=== PATIENT | female | born 1950 | race Caucasian/White ===

== ENCOUNTER 2019-09-17 20:55 | Emergency (ER) | payer MEDICARE ==
[~2019-09-17] VITALS: Ht 160 cm; Wt 90.7 kg
[~2019-09-17 20:55] MED LIST: ALBU90OI INH; ALEN70; CHOL10002; CITA20 PO; FOLI1 PO; GARLIC; GLUCOSAMIN-CHO1 EACH PO; Garlic1000 MG PO; HYDACE5 PO; HYDROCODONE/A; Hair, Skin & N1 EACH PO; LEVFLO500 PO; LEVSOD50 PO; MECL12.5 PO; MELO7.5; MELO7.5 PO; METTREX2.5 PO; MSM1000; Mucinex600 MG PO; Norco 5-325 Ta1 EACH PO; OLME20; OMEP20ER PO; VICODEN; VITAMIN; Vitamin B Comple1 EA PO; ZESTORETIC 20-1 EACH PO; [UNRECOGNIZED DRUG - REMARK]
[2019-09-17] MEDS ORDERED: CRUTCH2 XX (21:55)
== END 2019-09-17 22:31 | disposition home or self-care (01) ==
LOC: ER 20:55
DX: S92.352A Displaced fracture of fifth metatarsal bone, left foot, initial encounter for closed fracture (principal); W01.0XXA Fall on same level from slipping, tripping and stumbling without subsequent striking against object, initial encounter; Z88.0 Allergy status to penicillin; Z88.8 Allergy status to other drugs, medicaments and biological substances; Z79.899 Other long term (current) drug therapy; Z87.891 Personal history of nicotine dependence
CPT/HCPCS: 29515; 73610; 73620; 99283-25; A9270

== ENCOUNTER 2023-08-20 12:51 | Emergency (ER) | payer OTHER ==
[~2023-08-20] VITALS: Ht 154.9 cm; Wt 90.7 kg
[~2023-08-20 12:51] MED LIST changes: +CRUTCH2 XX
[2023-08-20 13:36] VITALS: BP 184/110
[2023-08-20 14:03] LABS: BASOPHILS ABSOLUTE AUTO 0.01 K/mm3 (0.00-0.23); BASOPHILS PERCENT AUTO 1 % (0-2); EOSINOPHILS ABSOLUTE AUTO 0.06 K/mm3 (0.00-0.68); EOSINOPHILS PERCENT AUTO 3 % (0-6); Hematocrit 40.7 % (33.0-51.0); IMMATURE GRAN PERCENT AUTO 0 % (0-1); LYMPHOCYTES ABSOLUTE AUTO 0.77 K/mm3 (0.84-5.20); LYMPHOCYTES PERCENT AUTO 42 % (21-46); MONOCYTES ABSOLUTE AUTO 0.43 K/mm3 (0.16-1.47); MONOCYTES PERCENT AUTO 24 % (4-13); Mean Corpuscular HGB 25.3 pg (26.0-34.0); Mean Corpuscular HGB Conc 31.9 g/dL (31.5-36.5); Mean Corpuscular Volume 79 fL (80-100); Mean Platelet Volume 11.1 fL (9.1-12.4); NEUTROPHILS ABSOLUTE AUTO 0.55 K/mm3 (1.96-9.15); NEUTROPHILS PERCENT AUTO 30 % (41-73); Platelet Count 171 K/mm3 (150-400); RDW Coefficient Variation 13.5 % (11.7-14.2); RDW Standard Deviation 38.6 fL (35.1-46.3); Red Blood Cell Count 5.13 M/mm3 (3.80-5.20); White Blood Cell Count 1.82 K/mm3 (4.00-11.30)
[2023-08-20 14:30] LABS: Albumin, Blood 3.3 g/dL (3.4-5.0); Albumin/Globulin Ratio 0.8 (0.8-1.8); Bilirubin, Total 0.4 mg/dL (0.1-1.0); Bun/Creatinine Ratio 12.5 (12.0-20.0); Calcium, Blood 8.5 mg/dL (8.5-10.1); Creatinine, Blood 0.64 mg/dL (0.40-1.00); Globulin, Blood 4.3 g/dL (2.2-4.0); Potassium, Blood 4.1 mmol/L (3.5-5.5); Total Protein, Blood 7.6 g/dL (6.4-8.2)
== END 2023-08-20 16:55 | disposition home or self-care (01) ==
LOC: ER 12:51
PROVIDERS: Student in an Organized Health Care Education/Training Program
DX: U07.1 COVID-19 (principal); D70.9 Neutropenia, unspecified; M06.9 Rheumatoid arthritis, unspecified; Z88.0 Allergy status to penicillin; Z79.899 Other long term (current) drug therapy; Z87.891 Personal history of nicotine dependence
CPT/HCPCS: 71046; 80053; 84484; 85025; 93005; 93010; 99285-25